=== PATIENT | female | born 1990 | race Caucasian/White ===

== ENCOUNTER 2019-06-15 17:22 | Outpatient (CLI) | payer BC ==
[~2019-06-15] VITALS: Ht 175.3 cm; Wt 93.6 kg
--- NOTE | 2019-06-15 17:15 | NUR ---
Patient ambulatory onto unit for labor check. Patient states she has been leaking fluid since 1600. Patient states she had an appointment with Clau at [facility] at 1430 and was dilated 350/-3. , 37.6wks. GBS-. EFMs on, VS taken. SVE 80/-2. AmniTrace negative. Vagina moist, mucousy discharge noted on exam glove. No fluid noted with exam. Patient reports good movement and reports occasional tightening. Denies vagina bleeding or painful contractions. Will notify. for further orders.
[2019-06-15 17:30] VITALS: BP 141/93; PULSE 83; TEMP 98.2
[2019-06-15] MEDS ORDERED: NATURAL IRON65 MG (17:39)
[2019-06-15] MEDS ORDERED: VALTREX1 GM PO (17:39)
[2019-06-15] MEDS ORDERED: PROZAC 20MG20 MG PO (17:40)
[2019-06-15] MEDS ORDERED: PRENATAL VITAMI1 TA3 PO (17:40)
[2019-06-15 17:45] VITALS: BP 131/86; PULSE 90
[2019-06-15 18:00] VITALS: BP 147/89; PULSE 96
[2019-06-15 18:15] VITALS: BP 137/89; PULSE 81
--- NOTE | 2019-06-15 18:15 | NUR ---
Report to Henri GA to assume care of patient at this time.
[2019-06-15 18:30] VITALS: BP 126/78; PULSE 74
[2019-06-15 18:33] LABS: BASO % 0.5 % (0.0-2.0); EOS % 0.5 % (0-4.0); GRAN # 5.5 (1.4-6.5); HEMOGLOBIN 12.5 g/dl (12.5-16.0); LYMPH # 2.1 (1.2-3.4); LYMPH % 24.6 % (20.0-51.0); MEAN CELL VOLUME 93 fl (80.0-100.0); MEAN CORPUSCULAR HEMOGLOBIN 31 pg (27.0-31.0); MEAN CORPUSCULAR HGB CONC 33 g/dl (33.0-37.0); MEAN PLATELET VOLUME 10.9 fl (7.4-10.4); MONO # 0.8 (0.1-0.6); MONO % 9.8 % (1.7-9.3); PLATELET COUNT 150 K/mm3 (130-400); RED BLOOD COUNT 4.09 M/mm3 (4.10-5.30); REDCELL DISTRIBUTION WIDTH-CV 14.9 % (11.5-14.5)
[2019-06-15 18:34] LABS: COLLECTION METHOD CLEAN CATCH
[2019-06-15 18:41] LABS: MUCOUS Present /lpf; PH 6 (5-8); SQUAMOUS EPITHELIAL 0-2 /hpf; URINE APPEARANCE Clear; URINE BACTERIA None Seen /hpf; URINE BILIRUBIN Negative (NEGATIVE); URINE BLOOD Negative (NEGATIVE); URINE COLOR Yellow; URINE GLUCOSE Negative (NEGATIVE); URINE KETONE Negative (NEGATIVE); URINE LEUKOCYTE ESTERASE Negative (NEGATIVE); URINE NITRATE Negative (NEGATIVE); URINE PROTEIN(semi-quant) Negative (NEGATIVE); URINE RBC 0-2 /hpf; URINE UROBILINOGEN Negative (NEGATIVE); URINE WBC 0-2 /hpf
--- NOTE | 2019-06-15 18:45 | NUR ---
1830 UP TO BR AND UA OBTAINED AND SENT TO LAB. DIME SIZE LIGHT PINK MUCOUSY AREA NOTED ON V-PAD. PAD OFF. RETURNED TO BED WITH EFM ON.
[2019-06-15 18:46] LABS: ALBUMIN 3.5 gm/dL (3.5-5.0); BILIRUBIN,TOTAL 0.3 mg/dL (0.0-1.0); CREATININE, serum 0.66 (0.52-1.25); POTASSIUM 3.8 mmol/L (3.4-5.0); TOTAL PROTEIN 6.5 gm/dL (6.4-8.2)
[2019-06-15 19:00] LABS: TRICYCLIC ANTIDEPRESS URINE NEGATIVE
--- NOTE | 2019-06-15 19:00 | NUR ---
1900 SVE DONE. CERVIX POSTERIOR AND HIGH. PRESENTING PART IS BALLOTABLE AND BOW FELT. NO ACTIVE VAGINAL DRAINAGE NOTED WITH SVE. 1909 DR LOWERY NOTIFIED OF SVE AND LAB RESULTS. 1930 UP TO AMB WITH A V PAD ON. WHEN OUT OF BED, NO FLUID NOTED ON BLUE PAD IN BED.
--- NOTE | 2019-06-15 19:45 | NUR ---
1944 SM PINKISH MUCOUSY SPOT NOTED ON V-PAD. AMNIOTRACE APPLIED TO AREA WITH NO CHANGE IN COLOR OF APPLICATOR. DR LOWERY NOTIFIED OF AMB AND SM DISCHARGE. INSTRUCTED TO SVE AGAIN AND IF NO CHANGE AND BOW FELT MAY SEND PT HOME WITH INSTRUCTIONS TO RETURN IF LARGE LEAKING OF AMNIOTIC FLUID AND TO BE SEEN TOMORROW AT [facility]. 1999 EFM ON. NO ACTIVE VAG DISCHARGE NOTED. SVE POSTERIOR, HIGH CERVIX, BALLOTABLE PRESENTING PART AND LARGE BOW FELT. NO C/O CONTRACTIONS PER PT. CONTRACTION PATTERN ON EFM EVERY 2-5 MINUTES. BABY VERY ACTIVE. 2019 DISCHARGED TO HOME WITH DISMISSAL INSTRUCTIONS.
[2019-06-15 20:00] VITALS: BP 134/79; PULSE 76
== END 2019-06-15 20:20 | disposition home or self-care (01) ==
LOC: COL.ER 17:22 → LDRO 17:22
PROVIDERS: Obstetrics & Gynecology
DX: O42.913 Preterm premature rupture of membranes, unspecified as to length of time between rupture and onset of labor, third trimester (principal); Z3A.36 36 weeks gestation of pregnancy

== ENCOUNTER 2019-06-16 01:22 | Inpatient (IN) | payer BC ==
[2019-06-16] VITALS (61 sets, daily range): BP systolic 111–156; BP diastolic 52–93; PULSE 73–127; TEMP 97.9–100
[~2019-06-16] VITALS: Ht 175.3 cm; Wt 93.6 kg
--- NOTE | 2019-06-16 01:20 | NUR ---
0120 G1L0 38 WEEK GEST TO LR3 WITH C/O REGULAR, STRONG CONTRACTIONS SINCE 2199. NO C/O LEAKING ANY FLUID AT THIS TIME. EFM ON AND SVE 5-6/80/-3 BALLOTABLE. ADM ASSESSMENT DONE.
[~2019-06-16 01:22] MED LIST: NATURAL IRON65 MG; PRENATAL VITAMI1 TA3 PO; PROZAC 20MG20 MG PO; VALTREX1 GM PO
--- NOTE | 2019-06-16 04:50 | NUR ---
0450 SITTING ON SIDE OF BED FOR EPID PLACEMENT. 0458 EPID TEST DOSE. SEE ANESTH RECORD FOR MORE INFORMATION.
--- NOTE | 2019-06-16 12:07 | NUR ---
Dr. Mendez at bedside for AROM. Copious amounts of clear fluid noted with AROM. SVE per provider /-2. Pericare provided. Pt updated on POC. Bed locked in low position. Call light within reach. No questions or concerns at this time. Pt repositioned HF.
--- NOTE | 2019-06-16 14:00 | NUR ---
SVE per this RN C/+1. Pt prepped for delivery and coached on pushing efforts. Practice push performed. Pt moves vertex well. 1503-Dr. Pinto at bedside for delivery. Begins pushing with pt. 1508- of viable female attended by Dr. Pinto. Cord clamped x 2 and cut from umbilicus. Infant dried and placed on mother's abdomen. Care of to Cam Nielsen RN. Apgars 8/9. 1510- of placenta. Pitocin bolus infusing per protocol. Fundus firm. Moderate amount of lochia and clots noted. Orders for methergine. See EMAR. First degree laceration repair performed by provider. Pericare performed. Ice pack applied. Pt updated on POC. Safety reviewed. Bed locked in low position. Call light within reach. No questions or concerns at this time.
[2019-06-17] VITALS: BP 127/90; PULSE 92; TEMP 97.6
[2019-06-17 04:00] VITALS: BP 121/79; PULSE 88; TEMP 97.7
--- NOTE | 2019-06-17 06:33 | NUR ---
REPORT RECEIVED FROM OFF GOING RN. CARE TAKEN OVER BY THIS RN.
[2019-06-17 08:36] VITALS: BP 125/79; PULSE 79; TEMP 97.9
[2019-06-17 12:27] VITALS: BP 124/84; PULSE 80; TEMP 97.5
[2019-06-17 16:31] VITALS: BP 118/63; PULSE 82; TEMP 97.8
[2019-06-17 20:00] VITALS: BP 119/70; PULSE 82; TEMP 98.4
== END 2019-06-18 13:30 | disposition home or self-care (01) | DRG 807 ==
LOC: LDRO 01:22 → LDR 01:23 → LDRO 01:59 → LDR 01:59 → OB 17:30
PROVIDERS: ADMIT Student in an Organized Health Care Education/Training Program
PROC: 10E0XZZ Delivery of Products of Conception, External Approach (ICD-10-PCS; principal; 2019-06-16)
PROC: 0HQ9XZZ Repair Perineum Skin, External Approach (ICD-10-PCS; 2019-06-16)
PROC: 10907ZC Drainage of Amniotic Fluid, Therapeutic from Products of Conception, Via Natural or Artificial Opening (ICD-10-PCS; 2019-06-16)
DX: O99.344 Other mental disorders complicating childbirth (principal); Z37.0 Single live birth; O70.0 First degree perineal laceration during delivery; Z3A.38 38 weeks gestation of pregnancy; O71.82 Other specified trauma to perineum and vulva; F32.9 Major depressive disorder, single episode, unspecified
CPT/HCPCS: J2210; J2590; J7120